=== PATIENT | female | born 1980 | race Caucasian/White ===

== ENCOUNTER 2016-08-11 15:13 | Emergency (ER) | payer MEDICAID ==
--- NOTE | 2016-08-11 15:45 | ER Document Report ---
ED Medical Screen (RME) - General Chief Complaint: Pelvic Pain Stated Complaint: ABDOMINAL PAIN Time seen by provider: 15:43 Mode of Arrival: Ambulatory Information source: Patient Notes: 36-year-old female presents to ED for left pelvic pain with excessive vaginal bleeding with clots since morning with a history of endometriosis. She states she's been having this bleeding for months has been to her DIRECTOR OF STAFF DEVELOPMENT multiple times. I have greeted and performed a rapid initial assessment of this patient. A comprehensive ED assessment and evaluation of the patient, analysis of test results and completion of medical decision making process will be conducted by an additional ED providers. TRAVEL OUTSIDE OF THE [place] IN LAST 30 DAYS: No - Related Data Allergies/Adverse Reactions: No Known Allergies Allergy (Unverified 11/08/15 14:14) Past Medical History Pulmonary Medical History: Reports: Hx Pneumonia Past Surgical History: Reports: Hx Cholecystectomy, Hx Gynecologic Surgery - Laparoscopic ovarian surgery, Hx Tonsillectomy - Immunizations Hx Diphtheria, Pertussis, Tetanus Vaccination: Yes Physical Exam - Vital signs Vitals: Temp Pulse Resp BP Pulse Ox 97.5 F 101 H 18 139/80 H 98 08/11/16 15:39 08/11/16 15:39 08/11/16 15:39 08/11/16 15:39 08/11/16 15:39 Course - Vital Signs Vital signs: Temp Pulse Resp BP Pulse Ox 97.5 F 101 H 18 139/80 H 98 08/11/16 15:39 08/11/16 15:39 08/11/16 15:39 08/11/16 15:39 08/11/16 15:39
[2016-08-11 16:12] LABS: ABSOLUTE BASOPHILS # (AUTO) 0.1 10^3/uL (0.0-0.2); ABSOLUTE EOSINOPHILS # (AUTO) 0.5 10^3/uL (0.0-0.6); ABSOLUTE LYMPHOCYTES (AUTO) 3.2 10^3/uL (0.5-4.7); ABSOLUTE MONOCYTES (AUTO) 0.6 10^3/uL (0.1-1.4); ABSOLUTE NEUT (AUTO) 3.5 10^3/uL (1.7-8.2); BASOPHILS % (AUTO) 1.1 % (0-2); EOSINOPHILS % (AUTO) 6.4 % (0-6); HEMOGLOBIN 9.7 g/dL (12.0-15.5); HGB HCT DIFFERENCE -0.9; LYMPHOCYTES % (AUTO) 40.4 % (13-45); MEAN CORPUSCULAR HEMOGLOBIN 25.6 pg (27.0-33.4); MEAN CORPUSCULAR HGB CONC 32.2 g/dL (32.0-36.0); MEAN CORPUSCULAR VOLUME 79 fl (80-97); MONOCYTES % (AUTO) 7.6 % (3-13); RED BLOOD COUNT 3.78 10^6/uL (3.72-5.28); RED CELL DISTRIBUTION WIDTH 13.9 % (11.5-14.0); SEGMENTED NEUTROPHILS % (AUTO) 44.5 % (42-78)
[2016-08-11 16:42] LABS: ALANINE AMINOTRANSFERASE 20 U/L (9-52); ALBUMIN 3.9 g/dL (3.5-5.0); ALKALINE PHOSPHATASE 89 U/L (38-126); ANION GAP 11 (5-19); ASPARTATE AMINO TRANSFERASE 19 U/L (14-36); BILIRUBIN,TOTAL 0.3 mg/dL (0.2-1.3); BLOOD UREA NITROGEN 13 mg/dL (7-20); CALCIUM 9.2 mg/dL (8.4-10.2); CARBON DIOXIDE 26 mmol/L (22-30); CHLORIDE 104 mmol/L (98-107); CREATININE RESULT 0.74 mg/dL (0.52-1.25); GLUCOSE 108 mg/dL (75-110); POTASSIUM 4.4 mmol/L (3.6-5.0); SODIUM 141.1 mmol/L (137-145); TOTAL PROTEIN 6.8 g/dL (6.3-8.2)
[2016-08-11 17:17] LABS: GLUCOSE, URINE 50 mg/dL (NEGATIVE)
[2016-08-11 17:18] LABS: BILIRUBIN,URINE NEGATIVE (NEGATIVE); KETONES,URINE NEGATIVE (NEGATIVE); LEUKOCYTE ESTERASE,URINE NEGATIVE (NEGATIVE); NITRITE,URINE NEGATIVE (NEGATIVE); PROTEIN,URINE >=500 mg/dL (NEGATIVE); URINE SPECIFIC GRAVITY 1.025; UROBILINOGEN,URINE NEGATIVE mg/dL (<2.0)
[2016-08-11 17:20] LABS: APPEARANCE,URINE CLOUDY
--- NOTE | 2016-08-11 17:36 | ER Document Report ---
ED GI/ - General Chief Complaint: Pelvic Pain Stated Complaint: ABDOMINAL PAIN Time seen by provider: 17:36 Mode of Arrival: Ambulatory Notes: 36-year-old female with a long history of endometriosis and chronic light daily vaginal bleeding is complaining of excessively heavy bleeding and large frequent clotting today with left pelvic pain. She feels lightheaded and dizzy today. Her vital signs are stable. Her test is negative that was ordered in E. She is no vaginal discharge it had an odor. No abnormal Paps or ovarian cysts. 10 years ago when this is happened and she needed iron infusions they did a laparoscopic and ablation. sHe recently moved here and saw Dr. Wilde 3 months ago. Last recorded hemoglobin that we had at [facility] was 11.25 October 2015 TRAVEL OUTSIDE OF THE [place] IN LAST 30 DAYS: No - Related Data Allergies/Adverse Reactions: No Known Allergies Allergy (Verified 08/11/16 15:45) Past Medical History - General Information source: Patient - Social History Smoking Status: Never Smoker Chew tobacco use (# tins/day): No Frequency of alcohol use: None Drug Abuse: None Family History: Reviewed & Not Pertinent Patient has suicidal ideation: No Patient has homicidal ideation: No Pulmonary Medical History: Reports: Hx Pneumonia Renal/ Medical History: Reports: Other - Endometriosis Past Surgical History: Reports: Hx Cholecystectomy, Hx Gynecologic Surgery - Laparoscopic ovarian surgery, ablation, Hx Tonsillectomy - Immunizations Hx Diphtheria, Pertussis, Tetanus Vaccination: Yes Review of Systems - Review of Systems Constitutional: No symptoms reported EENT: No symptoms reported Cardiovascular: No symptoms reported Respiratory: No symptoms reported Gastrointestinal: No symptoms reported Genitourinary: No symptoms reported Female Genitourinary: See HPI Musculoskeletal: No symptoms reported Skin: No symptoms reported Hematologic/Lymphatic: No symptoms reported Neurological/Psychological: No symptoms reported Physical Exam - Vital signs Vitals: Temp Pulse Resp BP Pulse Ox 97.5 F 101 H 18 139/80 H 98 08/11/16 15:39 08/11/16 15:39 08/11/16 15:39 08/11/16 15:39 08/11/16 15:39 Interpretation: Normal - General General appearance: Appears well, Alert, Anxious In distress: None - HEENT Head: Normocephalic, Atraumatic Eyes: Normal Conjunctiva: Normal Pupils: PERRL Mouth/Lips: Normal Pharynx: Normal Neck: Supple. No: Lymphadenopathy - Respiratory Respiratory status: No respiratory distress Chest status: Nontender Breath sounds: Normal Chest palpation: Normal - Cardiovascular Rhythm: Regular Heart sounds: Normal auscultation Murmur: No - Abdominal Inspection: Normal Distension: No distension Bowel sounds: Normal Tenderness: Nontender. No: Tender Organomegaly: No organomegaly - Genitourinary External exam: Normal Speculum exam: Cervix closed Vaginal bleeding: Mild Bimanuel exam: No: Cervical motion tender, Adnexal tenderness - Back Back: Normal, Nontender. No: CVA tenderness - Extremities General upper extremity: Normal inspection, Nontender, Normal color, Normal ROM , Normal temperature General lower extremity: Normal inspection, Nontender, Normal color, Normal ROM , Normal temperature, Normal weight bearing. No: Paul's sign - Neurological Neuro grossly intact: Yes Cognition: Normal Orientation: AAOx4 Gordon Coma Scale Eye Opening: Spontaneous Miranda Coma Scale Verbal: Oriented Miranda Coma Scale Motor: Obeys Commands Gordon Coma Scale Total: 15 Speech: Normal Motor strength normal: LUE, RUE, LLE, RLE Sensory: Normal - Psychological Associated symptoms: Normal affect, Normal mood - Skin Skin Temperature: Warm Skin Moisture: Dry Skin Color: Normal Skin irregularity: negative: Rash Course - Re-evaluation Re-evalutation: 08/11/16 17:[address] Soto.[facility] APC guidelines. 08/11/16 19:[address] Wilde who wants her to take 10 mg of Provera 3 times a day until the bleeding stops then 10 mg twice a day for a week. Have her call the office on Sunday morning and tell the girls that Dr. Wilde said to work her in on Sunday. - Vital Signs Vital signs: Temp Pulse Resp BP Pulse Ox 97.5 F 101 H 18 139/80 H 98 08/11/16 15:39 08/11/16 15:39 08/11/16 15:39 08/11/16 15:39 08/11/16 15:39 - Laboratory Result Diagrams: 08/11/16 15:59 08/11/16 15:59 Laboratory results interpreted by me: 08/11/16 08/11/16 15:59 15:59 Hgb 9.7 L Hct 30.0 L MCV 79 L MCH 25.6 L Eosinophils % 6.4 H Urine Protein >=500 H Urine Glucose (UA) 50 H Urine Blood SMALL H Discharge - Discharge Clinical Impression: vaignal bleeding, Endometriosis, Pelvic pain Anemia Qualifiers: Anemia type: unspecified type Qualified Code(s): D64.9 - Anemia, unspecified Ovarian cyst Qualifiers: Laterality: right Qualified Code(s): N83.201 - Unspecified ovarian cyst, right side Condition: Good Disposition: HOME, SELF-CARE Instructions: Endometriosis ([facility]), Pelvic Pain ([facility]), Vaginal Bleeding ([facility]), Provera ([facility]) Additional Instructions: call dr. wilde office on sunday morning and he said to tell the girls that he said to work you in on sunday to er if dizzy, lightheaded, heavy bleeding motrin for pain Prescriptions: Ibuprofen [Motrin 800 mg Tablet] 800 mg PO Q8HP PRN #30 tablet PRN Reason: Medroxyprogesterone Acet [Provera 10 Mg Tablet] 10 mg PO ASDIR PRN #25 tablet PRN Reason: Referrals: JOSE WILDE MD [Primary Care Provider] - 08/14/16
[2016-08-11] MEDS ORDERED: IBUPROFEN 800 MG TABLET PO ONE (18:10)
[2016-08-11 19:55] LABS: CHLAM PCR NOT DETECTED (NOT DETECT)
[2016-08-11 20:37] VITALS: BP 114/68
== END 2016-08-11 20:39 | disposition home or self-care (01) ==
LOC: ER 15:13
DX: N83.201 Unspecified ovarian cyst, right side (principal); D64.9 Anemia, unspecified; N80.9 Endometriosis, unspecified; R10.2 Pelvic and perineal pain; N93.9 Abnormal uterine and vaginal bleeding, unspecified; R10.9 Unspecified abdominal pain
CPT/HCPCS: 99284; 36415; 87210; 84702; 85025; 80053; 81001; 87491; 87591; 76830; 93976; J3490

== ENCOUNTER 2016-08-23 09:22 | Day surgery (SDC) | payer MEDICAID ==
[2016-08-22 09:50] LABS: ABSOLUTE BASOPHILS # (AUTO) 0.1 10^3/uL (0.0-0.2); ABSOLUTE EOSINOPHILS # (AUTO) 0.5 10^3/uL (0.0-0.6); ABSOLUTE LYMPHOCYTES (AUTO) 2.4 10^3/uL (0.5-4.7); ABSOLUTE MONOCYTES (AUTO) 0.7 10^3/uL (0.1-1.4); ABSOLUTE NEUT (AUTO) 3.4 10^3/uL (1.7-8.2); BASOPHILS % (AUTO) 1.1 % (0-2); EOSINOPHILS % (AUTO) 6.7 % (0-6); HEMATOCRIT 28.8 % (36.0-47.0); HEMOGLOBIN 9.3 g/dL (12.0-15.5); HGB HCT DIFFERENCE -0.9; LYMPHOCYTES % (AUTO) 34.1 % (13-45); MEAN CORPUSCULAR HEMOGLOBIN 25.1 pg (27.0-33.4); MEAN CORPUSCULAR HGB CONC 32.4 g/dL (32.0-36.0); MEAN CORPUSCULAR VOLUME 78 fl (80-97); MONOCYTES % (AUTO) 10.3 % (3-13); RED BLOOD COUNT 3.71 10^6/uL (3.72-5.28); RED CELL DISTRIBUTION WIDTH 13.6 % (11.5-14.0); SEGMENTED NEUTROPHILS % (AUTO) 47.8 % (42-78); WHITE BLOOD COUNT 7.1 10^3/uL (4.0-10.5)
[2016-08-22 10:17] LABS: ALANINE AMINOTRANSFERASE 43 U/L (9-52); ALBUMIN 4.2 g/dL (3.5-5.0); ALKALINE PHOSPHATASE 86 U/L (38-126); ANION GAP 15 (5-19); ASPARTATE AMINO TRANSFERASE 18 U/L (14-36); BILIRUBIN,TOTAL 0.3 mg/dL (0.2-1.3); BLOOD UREA NITROGEN 17 mg/dL (7-20); CALCIUM 9.7 mg/dL (8.4-10.2); CARBON DIOXIDE 22 mmol/L (22-30); CHLORIDE 105 mmol/L (98-107); CREATININE RESULT 0.79 mg/dL (0.52-1.25); GLUCOSE 106 mg/dL (75-110); POTASSIUM 4.8 mmol/L (3.6-5.0); SODIUM 141.9 mmol/L (137-145); TOTAL PROTEIN 7.5 g/dL (6.3-8.2)
[~2016-08-23 09:22] MED LIST: CEFAZOLIN SODIUM 1 GM in DEXTROSE 5%-WATER 50 ML IV PRN; DEXAMETHASONE SOD PHOSPHATE INJ 4 MG/1 ML VIAL ONE; LACTATED RINGERS 1000 ML IV PRN; LIDOCAINE 2% INJ-PF (20 MG/ML) 10 ML AMPUL ONE; ONDANSETRON HCL INJ/PF 4 MG/2 ML SDV ONE
[2016-08-23] MEDS ORDERED: MIDAZOLAM 2 MG/2 ML INJ ONE (11:24)
[2016-08-23] MEDS ORDERED: FENTANYL CITRATE INJ/PF 100 MCG/2 ML AMPUL ONE (11:24)
[2016-08-23] MEDS ORDERED: MORPHINE SULFATE 10 MG/ML INJ ONE (11:25)
[2016-08-23] MEDS ORDERED: PROPOFOL INJ 200 MG/20 ML VIAL IV ONE (11:25)
[2016-08-23] MEDS ORDERED: PROMETHAZINE HCL INJ 25 MG/1 ML VIAL IV PRN ×4 (12:13→12:28)
[2016-08-23] MEDS ORDERED: MEPERIDINE HCL/PF INJ 25 MG/1 ML DISP.SYRIN IV PRN (12:13)
[2016-08-23] MEDS ORDERED: OXYCODONE-ACETAMINOPHEN 5-325 MG TABLET PO PRN ×6 (12:13→12:28)
[2016-08-23] MEDS ORDERED: MORPHINE SULFATE 10 MG/ML INJ IV PRN (12:13)
[2016-08-23] MEDS ORDERED: FENTANYL CITRATE INJ/PF 100 MCG/2 ML AMPUL IV PRN ×3 (12:13)
[2016-08-23] MEDS ORDERED: DIPHENHYDRAMINE HCL 50 MG/ML VIAL IV PRN (12:13)
[2016-08-23] MEDS ORDERED: METHYLERGONOVINE MALEATE INJ/PF 0.2 MG/1 ML AMPULE ONE (12:14)
[2016-08-23] MEDS: FENTANYL CITRATE INJ/PF 100 MCG/2 ML AMPUL ONE ×3 (12:30→12:45)
[2016-08-23 13:04] LABS: HEMATOCRIT 26.6 % (36.0-47.0); HEMOGLOBIN 8.6 g/dL (12.0-15.5); HGB HCT DIFFERENCE -0.8; MEAN CORPUSCULAR HEMOGLOBIN 24.8 pg (27.0-33.4); MEAN CORPUSCULAR HGB CONC 32.5 g/dL (32.0-36.0); MEAN CORPUSCULAR VOLUME 77 fl (80-97); RED BLOOD COUNT 3.48 10^6/uL (3.72-5.28); RED CELL DISTRIBUTION WIDTH 13.5 % (11.5-14.0); WHITE BLOOD COUNT 5.4 10^3/uL (4.0-10.5)
--- NOTE | 2016-08-23 13:08 | OPERATIVE REPORT E ---
Operative Report NAME: CARISSA BRYANT : 1980 AGE: 36Y DATE OF SURGERY: 08/23/2016 ROOM: PREOPERATIVE DIAGNOSIS: Endometrial polyp. POSTOPERATIVE DIAGNOSIS: Incomplete versus missed . OPERATION: Suction dilation and curettage. SURGEON: JOSE WILDE M.D. ANESTHESIA: General. ESTIMATED BLOOD LOSS AT THE TIME OF SURGERY: 25 mL. PERTINENT HISTORY AND OPERATIVE FINDINGS: This is a 36-year-old female who is being followed in our office with bleeding. We did repeated tests. They were negative. Ultrasound revealed what appeared to be a polyp. She was brought in because of the persistent bleeding and anemia. At the time of surgery it became obvious that this was a missed incomplete AB. Cervix was slightly dilated. There were blood clots in the vagina. Uterus was slightly increased in size of about a 6 weeks uterus, was non-boggy, and adnexa was negative. PROCEDURE: The patient was brought into the OR and placed on the table in the supine position and inducted under general anesthesia. Following this, she was re-positioned in the dorsal lithotomy position, and prepped and draped in a sterile fashion. The bladder was drained of about 30 mL of clear yellow urine. Pelvic exam under anesthesia was done. A weighted speculum was inserted. The cervix was grasped on its anterior lip with a single-tooth tenaculum. The cervix was dilated, easily admitted a #10 Hegar dilator. Polyp forceps were inserted. Tissue returned looked decidual in nature, and it was elected at this point in time to switch over and do a suction curettage. This was brought into the room. A #10 curved suction curette was inserted through the cervix and carried to the fundus. It was then enabled, and it was gently rotated while pulling the suction catheter back. This was done x2. Tissue was removed was consistent with an incomplete . Having accomplished this using a medium-size sharp curette, the uterine cavity was curetted. There was no more tissue to be returned. This terminated the procedure. The equipment was removed. The patient was placed back in a supine position. Anesthesia was discontinued. She was transferred to the recovery room in satisfactory condition. DICTATING PHYSICIAN: JOSE WILDE M.D. [id number] Y#: [id number] ID: [id number] JOB#: [id number] ACCT: [id number] cc:JOSE WILDE M.D. >
[2016-08-23 14:28] VITALS: BP 110/57
== END 2016-08-23 14:25 | disposition home or self-care (01) ==
LOC: OROUT 09:22
PROVIDERS: ATTEND Obstetrics & Gynecology
PROC: 10D17ZZ Extraction of Products of Conception, Retained, Via Natural or Artificial Opening (ICD-10-PCS; principal; 2016-08-23 11:30)
DX: O02.1 Missed abortion (principal); D64.9 Anemia, unspecified
CPT/HCPCS: 86900; 86901; 36415 ×2; 86850; 85025; 85027; 81025; 80053; 88305 ×2; 59820; J2250; J0690; J1100; J3010; J2210; J2270; J2405; J2704; J3490; 940